=== PATIENT | female | born 1985 | race Caucasian/White ===

== ENCOUNTER 2024-07-14 08:24 | Emergency (ER) | payer OTHER ==
[2024-07-14] MEDS ORDERED: DICYCLOMINE HCL 20 MG/2 ML AMP IM ONE (09:15)
[2024-07-14] MEDS ORDERED: ONDANSETRON 4 MG/2 ML VIAL ONE (09:15)
[2024-07-14] MEDS ORDERED: NA CHLORIDE 0.9% 1,000 ML ONE (09:16)
[2024-07-14 09:44] LABS: Absolute Eosinophils 0.1 K/uL (0-0.5); Absolute Lymphocytes (CBC) 2.3 K/uL (0.7-4.9); Absolute Monocytes 0.7 K/uL (0.1-1.3); Absolute Neutrophil 5.3 K/uL (1.8-8.0); Basophils % 0.4 % (0-1.3); Eosinophils % 0.8 % (0-4.4); Hematocrit 41.3 % (36.0-45.0); Hemoglobin 14.6 g/dL (12.0-15.0); Lymphocytes % 27.3 % (15.3-44.8); MCH 32.2 pg (27.0-35.0); MCHC 35.4 g/dL (32.0-36.0); MCV 90.8 fL (80-100); MPV 8.8 fL (7.6-11.3); Monocytes % 7.9 % (3.3-12.3); Neutrophils % 63.6 % (41.7-73.7); Platelets 211 thou/uL (152-406); RBC Red Blood Cell Count 4.55 M/uL (3.86-4.86); Red Cell Distribution Width 13.7 % (12.1-15.2)
[2024-07-14 10:04] LABS: Albumin 3.3 g/dL (3.4-5.0); Albumin/Globulin Ratio 0.8 (1.1-1.8); Anion Gap 8.2 mEq/L (5.0-15.0); Bilirubin Total 0.6 mg/dL (0.2-1.0); Globulin 3.9 g/dL (2.3-3.5); Potassium 4.2 mEq/L (3.5-5.1); Protein, Total 7.2 g/dL (6.4-8.2)
[2024-07-14 10:06] LABS: Urine Bilirubin Negative (Negative); Urine Blood Negative (Negative); Urine Clarity Clear (Clear); Urine Color Light-Yellow (Yellow); Urine Glucose Negative (Negative); Urine Ketones Negative (Negative); Urine Microscopic Reflex YN NO UMIC; Urine Nitrite Negative (Negative); Urine Protein Negative (Negative); Urine Urobilinogen Normal mg/dL (0.2-1.0); Urine pH 5.5 (5.0-7.0)
--- NOTE | 2024-07-14 11:06 | RAD REPORT ---
EXAMINATION: Abdomen Pelvis W Contrast CLINICAL INDICATION: Female, 39 years old.ABD PAIN TECHNIQUE: CT abdomen and pelvis was performed, after the administration of IV contrast, [facility]. Axial, sagittal and coronal reconstructions were obtained. One or more of the following dose reduction techniques were used: Automated exposure control, adjustment of the mA and/o r kV according to patient size, and/or iterative reconstruction. Unless otherwise specified, incidental findings do not require dedicated imaging follow-up. [id number]. COMPARISON: 02/11/2023 FINDINGS: LOWER CHEST: No acute process identified.No significant pericardial effusion. Mild circumferential th ickening of the distal esophagus which could reflect esophagitis. UPPER GI: No significant abnormality. LIVER: Hepatic steatosis, but otherwise unremarkable. GALLBLADDER/BILE DUCTS: No biliary ductal dilatation.? PANCREAS: No mass, ductal dilation, or zo-pancreatic fluid. SPLEEN: Unremarkable. ADRENALS: No adrenal masses. KIDNEYS AND URETERS: No hydronephrosis.No suspicious renal mass.3 mm stone in the left kidney. ABDOMINAL AORTA AND OTHER VESSELS: Normal caliber aorta and IVC. PERITONEUM: No abnormal free fluid. No free air. LYMPH NODES: No pathologic lymphadenopathy. ABDOMINAL WALL: Unremarkable SMALL BOWEL/COLON: Small bowel has normal course and caliber. No colonic wall thickening or pericolon ic inflammatory changes.Normal appendix. URINARY BLADDER: Underdistended but grossly unremarkable. REPRODUCTIVE ORGANS: IUD MUSCULOSKELETAL: No acute or suspicious osseous abnormality. ADDITIONAL FINDINGS: None. IMPRESSION: No acute findings within the abdomen or pelvis. No appendicitis. Nonobstructing stone in the left kid nirav.
--- NOTE | 2024-07-14 11:14 | ER ---
Nurse's Notes [facility] Name: Shivani Chambers Age: 39 yrs Sex: Female : 1985 Arrival Date: 07/14/2024 Time: 08:24 Bed 15 Private MD: Diagnosis: Diarrhea, unspecified;Nausea Presentation: 07/14 08:39 Chief complaint: Patient states: R sided abdominal pain and R back pain with nausea and ll1 diarrhea for 1 week. No fever. Coronavirus screen: Client denies travel out of the [place] in the last 14 days. At this time, the client does not indicate any symptoms associated with coronavirus-19. Ebola Screen: Patient denies travel to an Ebola-affected area in the 21 days before illness onset. Initial Sepsis Screen: Does the patient meet any 2 criteria? No. Patient's initial sepsis screen is negative. Does the patient have a suspected source of infection? No. Patient's initial sepsis screen is negative. Risk Assessment: Do you want to hurt yourself or someone else? Patient reports no desire to harm self or others. Onset of symptoms was July 07, 2024. 08:39 Method Of Arrival: Ambulatory ll1 08:39 Acuity: BELLA 3 ll1 Historical: - Allergies: 08:38 No Known Allergies; ll1 - Home Meds: 08:38 [place] Thyroid Oral [Active]; trizeptide [Active]; ll1 - PMHx: 08:38 None; ll1 - PSHx: 08:38 None; ll1 - Immunization history:: Adult Immunizations up to date. - Infectious Disease History:: Denies. - Social history:: Smoking status: Patient denies any tobacco usage or history of. Screenin:26 [facility] ED Fall Risk Assessment (Adult) History of falling in the last 3 months, db including since admission No falls in past 3 months (0 pts) Confusion or Disorientation No (0 pts) Intoxicated or Sedated No (0 pts) Impaired Gait No (0 pts) Mobility Assist Device Used No (0 pt) Altered Elimination No (0 pt) Score/Fall Risk Level 0 - 2 = Low Risk Oriented to surroundings, Maintained a safe environment. Abuse screen: Denies threats or abuse. Denies injuries from another. Nutritional screening: No deficits noted. Tuberculosis screening: No symptoms or risk factors identified. Assessment: 09:20 Reassessment: Patient appears in no apparent distress at this time. Patient and/or db family updated on plan of care and expected duration. Pain level reassessed. Patient is alert, oriented x 3, equal unlabored respirations, skin warm/dry/pink. General: Appears in no apparent distress. comfortable, Behavior is calm, cooperative. Pain: Complains of pain in right lower quadrant. Neuro: Level of Consciousness is awake, alert, obeys commands, Oriented to person, place, time, situation. Respiratory: Airway is patent Respiratory effort is even, unlabored, Respiratory pattern is regular, symmetrical. 11:39 GI: Abdomen is flat. db Vital Signs: 08:39 BP 125 / 84; Pulse 71; Resp 16; Temp 98.1; Pulse Ox 100% ; Weight 81.65 kg; Height 5 ll1 ft. 5 in. ; Pain 7/10; 09:33 BP 105 / 73; Pulse 61; Resp 18; Pulse Ox 100% on R/A; db 10:30 BP 103 / 68; Pulse 62; Resp 16; Pulse Ox 100% on R/A; db 11:30 BP 108 / 83; Pulse 73; Resp 16; Pulse Ox 100% on R/A; db 08:39 Body Mass Index 29.95 (81.65 kg, 165.1 cm) ll1 08:39 Pain Scale: Adult ll1 ED Course: 08:25 Patient arrived in ED. al6 08:40 Triage completed. ll1 08:40 Arm band placed on. ll1 08:53 Patient placed in an exam room, on a stretcher. ll1 08:54 [facility] Randhawa FNP [facility]. jh7 08:54 Lonnie Guajardo MD is Attending Physician. jh7 09:00 Warm blanket given. ll1 09:08 Liyah Howard, RN is Primary Nurse. db 09:30 Initial lab(s) drawn, by me, sent to lab. Urine collected: clean catch specimen. db Inserted saline lock: 20 gauge in right antecubital area, using aseptic technique. Blood collected. Flushed with 10 mL NS. 10:48 CT Abd/Pelvis - IV Contrast Only In Process Unspecified. EDMS 11:26 Patient has correct armband on for positive identification. Bed in low position. Call db light in reach. Side rails up X 1. Pulse ox on. NIBP on. 11:39 Provided Education on: DISCHARGE AND FOLLOWUP. db 11:39 No provider procedures requiring assistance completed. IV discontinued, intact, db bleeding controlled, No redness/swelling at site. Administered Medications: 09:20 Drug: Dicyclomine IM 20 mg IM once Route: IM; Site: left ventrogluteal; db 11:40 Follow up: Response: No adverse reaction db 09:30 Drug: Ondansetron IVP 4 mg IVP once; over 2 minutes Route: IVP; Site: right antecubital;db 11:41 Follow up: Response: No adverse reaction db 09:30 Drug: NS 0.9% IV 1000 ml IV at 1 bolus Per protocol; to be given as a bolus over 60 db minutes Route: IV; Rate: 1 bolus; Site: right antecubital; 11:41 Follow up: Response: No adverse reaction; IV Status: Completed infusion; IV Intake: db 1000ml Medication: 11:39 VIS not applicable for this client. db Intake: 11:41 IV: 1000ml; Total: 1000ml. db Outcome: 11:13 Discharge ordered by Portia 11:39 Discharged to home ambulatory, with family, db 11:39 Condition: stable 11:39 Discharge instructions given to patient, family, Instructed on discharge instructions, follow up and referral plans. Prescriptions given X 3, 11:41 Patient left the ED. db Signatures: Dispatcher [employer] EDMS Manda Morales RN RN 1 Hawa Randhawa, BRICK TESTER BRICK TESTER 7 Liyah Howard RN RN db Pushpa Garcia Corrections: (The following items were deleted from the chart) 09:44 09:40 NS 0.9% IV 1000 ml IV at 1 bolus in right antecubital db db
--- NOTE | 2024-07-14 11:14 | EDPHYS ---
Physician Documentation [facility] Name: Shivani Chambers Age: 39 yrs Sex: Female : 1985 Arrival Date: 07/14/2024 Time: 08:24 Bed 15 Private MD: ED Physician Lonnie Guajardo HPI: 07/14 08:55 This 39 yrs old Female presents to ER via Ambulatory with complaints of Nausea, jh7 Diarrhea, Pain - side and back. 08:55 39-year-old female with a past medical history of hypothyroidism presents to the ER for jh7 nausea and diarrhea x 1 week. The patient reports that she initially thought it was food poisoning but now has developed right lower quadrant tenderness and right side pain. She denies any blood in the stool, fever, or urinary symptoms. She reports that her menstrual cycles have always been irregular and denies any vaginal bleeding. She denies any past abdominal surgeries.. Historical: - Allergies: 08:38 No Known Allergies; ll1 - Home Meds: 08:38 [place] Thyroid Oral [Active]; trizeptide [Active]; ll1 - PMHx: 08:38 None; ll1 - PSHx: 08:38 None; ll1 - Immunization history:: Adult Immunizations up to date. - Infectious Disease History:: Denies. - Social history:: Smoking status: Patient denies any tobacco usage or history of. ROS: 08:55 Constitutional: Per HPI jh7 Exam: 08:55 Constitutional: This is a well developed, well nourished patient who is awake, alert, jh7 and in no acute distress. Head/Face: Normocephalic, atraumatic. Neck: Trachea midline, no thyromegaly or masses palpated, and no cervical lymphadenopathy. Supple, full range of motion without nuchal rigidity, or vertebral point tenderness. No Meningismus. Cardiovascular: Regular rate and rhythm with a normal S1 and S2. No gallops, murmurs, or rubs. Normal PMI, no JVD. No pulse deficits. Respiratory: Lungs have equal breath sounds bilaterally, clear to auscultation and percussion. No rales, rhonchi or wheezes noted. No increased work of breathing, no retractions or nasal flaring. Skin: Warm, dry with normal turgor. Normal color with no rashes, no lesions, and no evidence of cellulitis. MS/ Extremity: Pulses equal, no cyanosis. Neurovascular intact. Full, normal range of motion. Neuro: Awake and alert, GCS 15, oriented to person, place, time, and situation. Motor strength 5/5 in all extremities. Sensory grossly intact. Normal gait. 08:55 Abdomen/GI: Inspection: abdomen appears normal, Bowel sounds: normal, Palpation: soft, mild abdominal tenderness, in the right lower quadrant, 08:55 Back: CVA tenderness, is absent, Vital Signs: 08:39 BP 125 / 84; Pulse 71; Resp 16; Temp 98.1; Pulse Ox 100% ; Weight 81.65 kg; Height 5 ll1 ft. 5 in. ; Pain 7/10; 09:33 BP 105 / 73; Pulse 61; Resp 18; Pulse Ox 100% on R/A; db 10:30 BP 103 / 68; Pulse 62; Resp 16; Pulse Ox 100% on R/A; db 11:30 BP 108 / 83; Pulse 73; Resp 16; Pulse Ox 100% on R/A; db 08:39 Body Mass Index 29.95 (81.65 kg, 165.1 cm) ll1 08:39 Pain Scale: Adult ll1 MDM: 08:54 Medical Screening Exam initiated [facility] 11:10 Differential diagnosis: gastritis, appendicitis, diverticulitis, viral gastroenteritis, [facility] gastroenteritis, Colitis. Data reviewed: vital signs, nurses notes, lab test result(s), radiologic studies, CT scan. I considered the following discharge prescriptions or medication management in the emergency department Medications were administered in the Emergency Department. See MAR. Historians other than the Patient: Spouse/Significant Other: . Counseling: I had a detailed discussion with the patient and/or guardian regarding the historical points, exam findings, and any diagnostic results supporting the discharge/admit diagnosis, to return to the emergency department if symptoms worsen or persist or if there are any questions or concerns that arise at home. Response to treatment: the patient's symptoms have mildly improved after treatment. ED course: Symptoms consistent with viral gastroenteritis. However, prescribed Cipro for infectious diarrhea due to symptoms worsening over 1 week. Encouraged to return to the ER if symptoms worsen or any new concerning symptoms develop.. 07/14 09:12 Order name: CBC with Diff; Complete Time: 10:07 [facility] 07/14 09:12 Order name: CMP; Complete Time: 10: [facility] 07/14 09:12 Order name: Lipase; Complete Time: 10: [facility] 07/14 09:17 Order name: Test, Urine; Complete Time: 10: [facility] 07/14 09:34 Order name: UA Rfx Raul Cult if indicated; Complete Time: 10: [facility] 07/14 09:12 Order name: CT Abd/Pelvis - IV Contrast Only; Complete Time: 11: [facility] 07/14 09:12 Order name: IV Saline Lock; Complete Time: 09:45 [facility] 07/14 09:12 Order name: Labs collected and sent; Complete Time: :45 [facility] Administered Medications: 09:20 Drug: Dicyclomine IM 20 mg IM once Route: IM; Site: left ventrogluteal; db 11:40 Follow up: Response: No adverse reaction db 09:30 Drug: Ondansetron IVP 4 mg IVP once; over 2 minutes Route: IVP; Site: right antecubital;db 11:41 Follow up: Response: No adverse reaction db 09:30 Drug: NS 0.9% IV 1000 ml IV at 1 bolus Per protocol; to be given as a bolus over 60 db minutes Route: IV; Rate: 1 bolus; Site: right antecubital; 11:41 Follow up: Response: No adverse reaction; IV Status: Completed infusion; IV Intake: db 1000ml Disposition Summary: 07/14/24 11:13 Discharge Ordered Notes: Location: Home [facility] Problem: new [facility] Symptoms: have improved [facility] Condition: Stable [facility] Diagnosis - Diarrhea, unspecified [facility] - Nausea [facility] Followup: [facility] - With: Private Physician - When: 2 - 3 days - Reason: Recheck today's complaints Discharge Instructions: - Discharge Summary Sheet [facility] - Food Choices to Help Relieve Diarrhea, Adult [facility] - Diarrhea, Adult [facility] - Nausea, Adult [facility] Forms: - Medication Reconciliation Form [facility] - Antibiotic Education [facility] - Patient Portal Instructions [facility] - Leadership Thank You Letter [facility] Prescriptions: - ondansetron 4 mg Oral Tablet,disintegrating - take 1 tablet ORAL route every 6 hours As needed as needed for nausea and [facility] vomiting; 20 tablet; Refills: 0, Product Selection Permitted - Cipro 500 mg Oral tablet - take 1 tablet ORAL route every 12 hours for 5 days; 10 tablet; Refills: 0, jh7 Product Selection Permitted - Levsin 0.125 mg Oral Tablet - take 1 tablet ORAL route every 8 hours; 30 tablet; Refills: 0, Product jh7 Selection Permitted Signatures: Dispatcher [employer] Manda Larsen RN RN ll1 Hawa Randhawa, ECONOMIST RESEARCH ASSISTANT ECONOMIST RESEARCH ASSISTANT jh7 Liyah Howard RN RN db
[2024-07-14 11:56] VITALS: TEMP 98.1; O2SAT 100
[2024-07-14 11:59] VITALS: BP 103/68
== END 2024-07-14 11:41 | disposition home or self-care (01) ==
LOC: ER 08:24
DX: R19.7 Diarrhea, unspecified (principal); R11.0 Nausea; R10.31 Right lower quadrant pain
CPT/HCPCS: 96361; 85025; 36415; 81025; 81003; 83690; 80053; 74177; 96372; 96374; 99284; Q9967; J0500; J2405; J7030

== ENCOUNTER 2024-10-08 01:15 | Emergency (ER) | payer OTHER ==
[2024-10-08] MEDS ORDERED: FAMOTIDINE 20 MG/2 ML VIAL IV ONE (02:01)
[2024-10-08] MEDS ORDERED: NA CHLORIDE 0.9% 1,000 ML ONE ×2 (02:01→03:29)
[2024-10-08] MEDS ORDERED: ONDANSETRON 4 MG/2 ML VIAL ONE (02:01)
[2024-10-08] MEDS ORDERED: hydrOXYzine HCL 25 MG TAB ONE (02:17)
[2024-10-08 02:28] LABS: ALT/SGPT 28.0 U/L (13-56); AST/SGOT 12.0 U/L (15-37); Albumin 4.0 g/dL (3.4-5.0); Albumin/Globulin Ratio 1.1 (1.1-1.8); Alkaline Phosphatase 66.0 U/L (45-117); Anion Gap 6.6 mEq/L (5.0-15.0); BUN Blood Urea Nitrogen 11.0 mg/dL (7-18); Globulin 3.7 g/dL (2.3-3.5); Glucose Level 99.0 mg/dL (74-106); Lipase 28.0 U/L (13-75); Potassium 3.6 mEq/L (3.5-5.1)
[2024-10-08 02:29] LABS: Absolute Lymphocytes (CBC) 2.4 K/uL (0.7-4.9); Hematocrit 45.0 % (36.0-45.0); Hemoglobin 15.5 g/dL (12.0-15.0); MCH 31.3 pg (27.0-35.0); MCHC 34.4 g/dL (32.0-36.0); MCV 91.1 fL (80-100); MPV 9.1 fL (7.6-11.3); Nucleated RBC Absolute Count 0.0 (0-0); Nucleated Red Blood Cells % 0.0 % (0-0); RBC Red Blood Cell Count 4.94 M/uL (3.86-4.86); White Blood Count 8.90 thou/uL (4.3-10.9)
[2024-10-08] MEDS ORDERED: METOCLOPRAMIDE 10 MG/2mL INJ ONE (02:42)
[2024-10-08] MEDS ORDERED: MAGNES/ALUMIN/SIMET 30ML UCUP ONE (02:43)
[2024-10-08] MEDS ORDERED: PROMETHAZINE INJ 25 MG/ML AMP ONE (02:43)
[2024-10-08] MEDS ORDERED: LIDOCAINE VISCOUS 2% 10ML ORAL SOLN ONE (02:43)
--- NOTE | 2024-10-08 04:42 | ER ---
Nurse's Notes [facility] Name: Shivani Chambers Age: 39 yrs Sex: Female : 1985 Arrival Date: 10/08/2024 Time: 01:15 Bed 13 Private MD: Diagnosis: Acute gastritis without bleeding;Acute nausea and vomiting, Presentation: 10/08 01:43 Chief complaint: Patient states: WOKE UP AT 2350 WITH ABDOMINAL PAIN, N/V AND jj7 CONSTIPATION. STATES SHE HAS BEEN DEALING WITH THIS FOR 3 MONTHS. HAS HAD AN ENDOSCOPY AND STILL WAITING FOR THE RESULTS. Coronavirus screen: At this time, the client does not indicate any symptoms associated with coronavirus-19. Ebola Screen: No symptoms or risks identified at this time. Initial Sepsis Screen: Does the patient meet any 2 criteria? No. Patient's initial sepsis screen is negative. Does the patient have a suspected source of infection? No. Patient's initial sepsis screen is negative. Risk Assessment: Do you want to hurt yourself or someone else? Patient reports no desire to harm self or others. Onset of symptoms was October 07, 2024 at 23:50. 01:43 Method Of Arrival: Ambulatory 7 01:43 Acuity: BELLA 3 jj7 Triage Assessment: 01:45 General: Appears in no apparent distress. comfortable, Behavior is calm, cooperative, jj7 appropriate for age. Pain: Complains of pain in abdomen. GI: Reports lower abdominal pain, upper abdominal pain, constipation, nausea, vomiting. 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 - Infectious Disease History:: Denies. - Social history:: Smoking status: Patient denies any tobacco usage or history of. Patient/guardian denies using alcohol, street drugs, IV drugs. - Family history:: not pertinent. Screenin:34 [facility] ED Fall Risk Assessment (Adult) History of falling in the last 3 months, jj7 including since admission No falls in past 3 months (0 pts) Confusion or Disorientation No (0 pts) Intoxicated or Sedated No (0 pts) Impaired Gait No (0 pts) Mobility Assist Device Used No (0 pt) Altered Elimination No (0 pt) Score/Fall Risk Level 0 - 2 = Low Risk Oriented to surroundings, Maintained a safe environment, Educated pt \T\ family on fall prevention, incl call for assistance when getting out of bed, Assessed \T\ reinforced patient's understanding of fall precautions. Abuse screen: Denies threats or abuse. Nutritional screening: No deficits noted. Tuberculosis screening: No symptoms or risk factors identified. Assessment: 02:00 General: Appears in no apparent distress. uncomfortable, Behavior is calm, cooperative, jb4 appropriate for age. Pain: Complains of pain in abdomen Pain does not radiate. Pain currently is 8 out of 10 on a pain scale. Neuro: Level of Consciousness is awake, alert, obeys commands, Oriented to person, place, time, situation. Cardiovascular: Patient's skin is warm and dry. Respiratory: Airway is patent Respiratory effort is even, unlabored, Respiratory pattern is regular, symmetrical. GI: Abdomen is flat, non-distended, Reports nausea, vomiting. Derm: Skin is intact, Skin is pink, warm \T\ dry. Musculoskeletal: Circulation, motion, and sensation intact. Range of motion: intact in all extremities. 03:15 Reassessment: Patient appears in no apparent distress at this time. Patient and/or jb4 family updated on plan of care and expected duration. Pain level reassessed. Patient is alert, oriented x 3, equal unlabored respirations, skin warm/dry/pink. report given to PIPER KHAN. 03:20 Reassessment: ASSUMED CARE OF PT. PT SITTING IN BED. STATES SHE IS FEELING MUCH BETTER. jj7 NO DISTRESS NOTED. FAMILY AT BEDSIDE. 03:57 Reassessment: Patient appears in no apparent distress at this time. Patient and/or cp4 family updated on plan of care and expected duration. Pain level reassessed. Patient is alert, oriented x 3, equal unlabored respirations, skin warm/dry/pink. Vital Signs: 01:43 BP 129 / 98; Pulse 63; Resp 18; Temp 97.8; Pulse Ox 100% on R/A; Weight 81.65 kg; jj7 Height 5 ft. 5 in. ; 03:33 BP 99 / 52; Pulse 65; Resp 18; Pulse Ox 98% ; Pain 0/10; jj7 03:56 BP 109 / 73; Pulse 73; Resp 18; Pulse Ox 98% ; cp4 04:56 BP 107 / 71; Pulse 64; Resp 18; Pulse Ox 99% ; cp4 01:43 Body Mass Index 29.95 (81.65 kg, 165.1 cm) jj7 03:33 Pain Scale: Adult jj7 [place] Coma Score: 04:25 Eye Response: spontaneous(4). Motor Response: obeys commands(6). Verbal Response: sp4 oriented(5). Total: 15. ED Course: 01:19 Patient arrived in ED. gm2 01:22 Ronni Ahumada MD is Attending Physician. sp4 01:45 Arm band placed on right wrist. Patient placed in an exam room, on a stretcher. jj7 01:59 CBC with Diff Sent. jb4 01:59 CMP Sent. jb4 01:59 Lipase Sent. jb4 01:59 Test, Urine Sent. jb4 02:02 Triage completed. jj7 03:05 CT Abd/Pelvis - IV Contrast Only In Process Unspecified. EDMS 04:39 Aldo Sung MD is Referral Physician. sp4 04:57 No provider procedures requiring assistance completed. intact, bleeding controlled, No cp4 redness/swelling at site. Pressure dressing applied. 04:57 Bed in low position. Call light in reach. Side rails up X2. Provided Education on: cp4 gastritis. Administered Medications: 02:12 Drug: Famotidine IVP 20 mg IVP once; dilute with 10 mL 0.9% NaCl; give over 2 minutes jb4 Route: IVP; Site: right antecubital; 04:59 Follow up: Response: No adverse reaction cp4 02:13 Drug: Ondansetron IVP 8 mg IVP once; over 2 minutes Route: IVP; Site: right antecubital;jb4 04:59 Follow up: Response: No adverse reaction cp4 02:13 Drug: NS 0.9% IV 1000 ml IV at 1 bolus Per protocol; to be given as a bolus over 60 jb4 minutes Route: IV; Rate: 1 bolus; Site: right antecubital; 04:58 Follow up: IV Status: Completed infusion cp4 02:26 Drug: hydrOXYzine PO 50 mg PO once Route: PO; jb4 04:59 Follow up: Response: No adverse reaction cp4 03:02 Drug: metoCLOPramide IVP 10 mg IVP once; over 1 to 2 minutes Route: IVP; Site: right jb4 antecubital; 04:59 Follow up: Response: No adverse reaction cp4 03:03 Drug: GI Cocktail without - (Maalox PO 30 ml, Lidocaine Mucous Membrane 2 % 15 jb4 ml) PO once Route: PO; 04:59 Follow up: Response: No adverse reaction cp4 03:03 Drug: Promethazine IM 25 mg IM once Route: IM; Site: right gluteus; jb4 04:59 Follow up: Response: No adverse reaction cp4 03:32 Drug: NS 0.9% IV 1000 ml IV at 1000 ml once; to be given as a bolus over 60 minutes jj7 Route: IV; Rate: 1000 ml; Site: right forearm; 04:58 Follow up: IV Status: Completed infusion cp4 Medication: 04:57 VIS not applicable for this client. cp4 Outcome: 04:41 Discharge ordered by . sp4 04:57 Discharged to home ambulatory, cp4 04:57 Condition: stable 04:57 Discharge instructions given to patient, family, Instructed on discharge instructions, follow up and referral plans. medication usage, Demonstrated understanding of instructions, follow-up care, medications, Prescriptions given X 5 04:59 Patient left the ED. cp4 Signatures: Dispatcher [employer] EDMS Shiva Mathur RN RN jb4 Isabel Oquendo RN RN jj7 Ronni Ahumada MD MD sp4 Harini Baldwin cp4 Chela Arnett [facility]
--- NOTE | 2024-10-08 04:43 | EDPHYS ---
Physician Documentation [facility] Name: Shivani Chambers Age: 39 yrs Sex: Female : 1985 Arrival Date: 10/08/2024 Time: 01:15 Bed 13 Private MD: ED Physician Ronni Ahumada HPI: 10/08 01:23 This 39 yrs old Other Race Female presents to ER via Unassigned with complaints of sp4 Abdominal Pain, Nausea/Vomiting. 04:25 Patient is a 39-year-old female presents with acute onset epigastric abdominal pain sp4 associated with multiple episodes of vomiting. Pain started in the morning and yesterday and intensified in the evening. Patient reports multiple episodes of vomiting. Patient reports an endoscopy by Dr. Aldo Sung in the last 7 days that discovered gastritis. Patient has history of increased IgA levels elevated lipase levels and elevated hematocrit. . 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 - Infectious Disease History:: Denies. - Social history:: Smoking status: Patient denies any tobacco usage or history of. Patient/guardian denies using alcohol, street drugs, IV drugs. - Family history:: not pertinent. ROS: 04:25 Constitutional: Negative for fever, chills, and weight loss, positive for epigastric sp4 pain, positive for nausea vomiting 04:25 All other systems are negative, Exam: 04:25 Constitutional: This is a well developed, well nourished patient who is awake, alert, sp4 and in no acute distress. Head/Face: Normocephalic, atraumatic. Eyes: Pupils equal round and reactive to light, extra-ocular motions intact. Lids and lashes normal. Conjunctiva and sclera are not injected. Cornea within normal limits. Periorbital areas with no swelling, redness, or edema. ENT: Nares patent. No nasal discharge, no septal abnormalities noted. Tympanic membranes are normal and external auditory canals are clear. Oropharynx with no redness, swelling, or masses, exudates, or evidence of obstruction, uvula midline. Mucous membranes moist. Neck: Trachea midline, no thyromegaly or masses palpated, and no cervical lymphadenopathy. Supple, full range of motion without nuchal rigidity, or vertebral point tenderness. Chest/axilla: Normal chest wall appearance and motion. Nontender with no deformity. No lesions are appreciated. Cardiovascular: Regular rate and rhythm with a normal S1 and S2. No gallops, murmurs, or rubs. No pulse deficits. Respiratory: Lungs have equal breath sounds bilaterally, clear to auscultation and percussion. No rales, rhonchi or wheezes noted. No increased work of breathing, no retractions or nasal flaring. Abdomen/GI: Soft, with normal bowel sounds. No distension or tympany. No guarding or rebound. No evidence of tenderness throughout. Back: No spinal tenderness. No costovertebral tenderness. Skin: Warm, dry with normal turgor. Normal color with no rashes, no lesions, and no evidence of cellulitis. MS/ Extremity: Pulses equal, no cyanosis. Neurovascular intact. Full, normal range of motion. Neuro: Awake and alert, GCS 15, oriented to person, place, time, and situation. Cranial nerves II-XII grossly intact. Motor strength 5/5 in all extremities. Sensory grossly intact. Psych: Awake, alert, with orientation to person, place and time. Behavior, mood, and affect are within normal limits Vital Signs: 01:43 BP 129 / 98; Pulse 63; Resp 18; Temp 97.8; Pulse Ox 100% on R/A; Weight 81.65 kg; [facility] Height 5 ft. 5 in. ; 03:33 BP 99 / 52; Pulse 65; Resp 18; Pulse Ox 98% ; Pain 0/10; j7 03:56 BP 109 / 73; Pulse 73; Resp 18; Pulse Ox 98% ; cp4 04:56 BP 107 / 71; Pulse 64; Resp 18; Pulse Ox 99% ; cp4 01:43 Body Mass Index 29.95 (81.65 kg, 165.1 cm) [facility] 03:33 Pain Scale: Adult [facility] Latta Coma Score: 04:25 Eye Response: spontaneous(4). Motor Response: obeys commands(6). Verbal Response: sp4 oriented(5). Total: 15. MDM: 01:23 Medical Screening Exam initiated sp4 04:24 ED course: CT 07/14/2024 - EXAMINATION: Abdomen Pelvis W Contrast CLINICAL INDICATION: sp4 Female, 39 years old.ABD PAIN TECHNIQUE: CT abdomen and pelvis was performed, after the administration of IV contrast, as per department protocol. Axial, sagittal and coronal reconstructions were obtained. One or more of the following dose reduction techniques were used: Automated exposure control, adjustment of the mA and/or kV according to patient size, and/or iterative reconstruction. Unless otherwise specified, incidental findings do not require dedicated imaging follow-up. [id number]. COMPARISON: 02/11/2023 FINDINGS: LOWER CHEST: No acute process identified.No significant pericardial effusion. Mild circumferential thickening of the distal esophagus which could reflect esophagitis. UPPER GI: No significant abnormality. LIVER: Hepatic steatosis, but otherwise unremarkable. GALLBLADDER/BILE DUCTS: No biliary ductal dilatation.? PANCREAS: No mass, ductal dilation, or zo-pancreatic fluid. SPLEEN: Unremarkable. ADRENALS: No adrenal masses. KIDNEYS AND URETERS: No hydronephrosis.No suspicious renal mass.3 mm stone in the left kidney. ABDOMINAL AORTA AND OTHER VESSELS: Normal caliber aorta and IVC. PERITONEUM: No abnormal free fluid. No free air. LYMPH NODES: No pathologic lymphadenopathy. ABDOMINAL WALL: Unremarkable SMALL BOWEL/COLON: Small bowel has normal course and caliber. No colonic wall thickening or pericolonic inflammatory changes.Normal appendix. URINARYBLADDER: Underdistended but grossly unremarkable. REPRODUCTIVE ORGANS: IUD MUSCULOSKELETAL: No acute or suspicious osseous abnormality. ADDITIONAL FINDINGS: None. IMPRESSION: No acute findings within the abdomen or pelvis. No appendicitis. Nonobstructing stone in the left kidney. . 04:30 ED course: COMPARISON: CT abdomen pelvis 07/14/2024 FINDINGS: Lower thorax: Lung bases sp4 are clear Abdomen: Stomach:Within normal limits Liver:No focal lesions. No intrahepatic ductal distention. Gallbladder:Nondistended Pancreas:Within normal limits Spleen:Within normal limits Right kidney:No hydronephrosis. No focal lesion. Left kidney:No hydronephrosis. 3 mm renal stone. Adrenal glands:Within normal limits Vascular structures:Within normal limits Nodes:No lymphadenopathy by size criteria Pelvis: Small bowel:No significant distention. Appendix:Within normal limits Colon:No distention or acute pericolonic edema. Moderate stool burden. Questionable mild wall thickening of the distal transverse and proximal descending colon, could be secondary to underdistention. Peritoneum: No free intraperitoneal fluid or air. Bones: No acute bone findings. Bladder: Unremarkable. Reproductive organs: No acute findings. Intrauterine device visualized. IMPRESSION: 1. Questionable mild wall thickening of the distal transverse and proximal descending colon, could be secondary to underdistention. Correlate for colitis. 2. Left-sided nephrolithiasis. No hydronephrosis. 3. Moderate stool burden. Electronically signed by: Pilar Garland MD 10/08/2024 04:27 AM CDT RP. 20:32 Differential diagnosis: Nonspecific abd pain, gastritis, pancreatitis, viral sp4 gastroenteritis, gastroenteritis. Data reviewed: vital signs, nurses notes, lab test result(s), radiologic studies, CT scan. Consideration of Admission/Observation Escalation of care including admission/observation considered. 10/08 01:23 Order name: Test, Urine; Complete Time: 02:37 sp4 10/08 01:23 Order name: CBC with Diff; Complete Time: 04:05 sp4 10/08 01:23 Order name: CMP; Complete Time: 02:37 sp4 10/08 01:23 Order name: Lipase; Complete Time: 02:37 sp4 10/08 02:37 Order name: CT Abd/Pelvis - IV Contrast Only sp4 10/08 01:23 Order name: IV Saline Lock; Complete Time: 01:59 sp4 10/08 01:23 Order name: Labs collected and sent; Complete Time: 01:59 sp4 Administered Medications: 02:12 Drug: Famotidine IVP 20 mg IVP once; dilute with 10 mL 0.9% NaCl; give over 2 minutes jb4 Route: IVP; Site: right antecubital; 04:59 Follow up: Response: No adverse reaction cp4 02:13 Drug: Ondansetron IVP 8 mg IVP once; over 2 minutes Route: IVP; Site: right antecubital;jb4 04:59 Follow up: Response: No adverse reaction cp4 02:13 Drug: NS 0.9% IV 1000 ml IV at 1 bolus Per protocol; to be given as a bolus over 60 jb4 minutes Route: IV; Rate: 1 bolus; Site: right antecubital; 04:58 Follow up: IV Status: Completed infusion cp4 02:26 Drug: hydrOXYzine PO 50 mg PO once Route: PO; jb4 04:59 Follow up: Response: No adverse reaction cp4 03:02 Drug: metoCLOPramide IVP 10 mg IVP once; over 1 to 2 minutes Route: IVP; Site: right jb4 antecubital; 04:59 Follow up: Response: No adverse reaction cp4 03:03 Drug: GI Cocktail without - (Maalox PO 30 ml, Lidocaine Mucous Membrane 2 % 15 jb4 ml) PO once Route: PO; 04:59 Follow up: Response: No adverse reaction cp4 03:03 Drug: Promethazine IM 25 mg IM once Route: IM; Site: right gluteus; jb4 04:59 Follow up: Response: No adverse reaction cp4 03:32 Drug: NS 0.9% IV 1000 ml IV at 1000 ml once; to be given as a bolus over 60 minutes jj7 Route: IV; Rate: 1000 ml; Site: right forearm; 04:58 Follow up: IV Status: Completed infusion cp4 Disposition: 20:33 Chart complete. sp4 Disposition Summary: 10/08/24 04:41 Discharge Ordered Problem: new sp4 Symptoms: have improved sp4 Condition: Stable sp4 Diagnosis - Acute gastritis without bleeding sp4 - Acute nausea and vomiting, sp4 Followup: sp4 - With: Aldo Sung MD - When: 7 - 10 days - Reason: Recheck today's complaints Discharge Instructions: - Discharge Summary Sheet sp4 - Clear Liquid Diet, Adult, [id number] sp4 Forms: - Patient Portal Instructions sp4 Prescriptions: - pantoprazole 40 mg Oral tablet, delayed release (enteric coated) - take 1 tablet ORAL route daily; 30 tablet; Refills: 0, Product Selection sp4 Permitted - Reglan 10 mg Oral tablet - take 1 tablet ORAL route every 6 hours PRN nausea; 30 tablet; Refills: 0, sp4 Product Selection Permitted - Valium 5 mg Oral tablet - take 1 tablet ORAL route once daily As needed PRN anxiety; 20 tablet; Refills: sp4 0, Product Selection Permitted - promethazine 25 mg Oral tablet - take 1 tablet ORAL route every 6 hours As needed PRN nausea; 30 tablet; sp4 Refills: 0, Product Selection Permitted - dicyclomine 20 mg Oral tablet - take 1 tablet ORAL route every 6 hours PRN abdominal pain; 30 tablet; Refills: sp4 0, Product Selection Permitted Signatures: Dispatcher [employer] Shiva Merida RN RN jb4 Isabel Oquendo RN RN jj7 Ronni Ahumada MD MD sp4 Harini Baldwin 4
[2024-10-08 05:04] VITALS: TEMP 97.8
--- NOTE | 2024-10-08 05:07 | RAD REPORT ---
EXAM DESCRIPTION: Abdomen Pelvis W Contrast RadLex: CT ABDOMEN PELVIS WITH IV CONTRAST CLINICAL HISTORY: 39 years Female; ABD PAIN; IV ONLY Bed Name: 23 TECHNIQUE: CT of the abdomen and pelvis [with] intravenous contrast. All CT scans at this facility use dose modulation, iterative reconstruction, and/or weight based dosi ng when appropriate to reduce radiation dose to as low as reasonably achievable. COMPARISON: CT abdomen pelvis 07/14/2024 FINDINGS: Lower thorax: Lung bases are clear Abdomen: Stomach: Within normal limits Liver: No focal lesions. No intrahepatic ductal distention. Gallbladder: Nondistended Pancreas: Within normal limits Spleen: Within normal limits Right kidney: No hydronephrosis. No focal lesion. Left kidney: No hydronephrosis. 3 mm renal stone. Adrenal glands: Within normal limits Vascular structures: Within normal limits Nodes: No lymphadenopathy by size criteria Pelvis: Small bowel: No significant distention. Appendix: Within normal limits Colon: No distention or acute pericolonic edema. Moderate stool burden. Questionable mild wall thicke clif[place] of the distal transverse and proximal descending colon, could be secondary to underdistention. Peritoneum: No free intraperitoneal fluid or air. Bones: No acute bone findings. Bladder: Unremarkable. Reproductive organs: No acute findings. Intrauterine device visualized. IMPRESSION: 1. Questionable mild wall thickening of the distal transverse and proximal descending colon, could be secondary to underdistention. Correlate for colitis. 2. Left-sided nephrolithiasis. No hydronephrosis. 3. Moderate stool burden. Electronically signed by: Pilar Garland MD 10/08/2024 04:27 AM CDT RP TYG Due to temporary technical issues with the PACS/Price[employer] reporting system, reports are being lara d by the in-house radiologist without review as a courtesy to ensure prompt reporting the interpreting radiologist is fully responsible for the content of the report. Transcribed Date/Time: 10/08/2024 5:07 AM
[2024-10-08 05:09] VITALS: BP 107/71; O2SAT 99
== END 2024-10-08 04:59 | disposition home or self-care (01) ==
LOC: ER 01:15
DX: K29.00 Acute gastritis without bleeding (principal)
CPT/HCPCS: 96361; 85025; 36415; 81025; 83690; 80053; 74177; 96375; 96372; 96374; 99284; Q9967; J2550; J2765; J2405; J7030 ×2